=== PATIENT | male | born 1985 | race Caucasian/White ===

== ENCOUNTER 2021-09-22 13:40 | Emergency (ER) | payer OTHER, SELFPAY ==
--- NOTE | ~2021-09-22 | CT_ITS ---
EXAMINATION: CT abdomen pelvis w con CLINICAL INFORMATION: Reason for Exam mid abdomen pain COMPARISON: Prior CT 2006 TECHNIQUE: Multidetector volumetric imaging was performed from the superior aspect of the liver through the pubic symphysis 85 mL Omnipaque 350 injected Sagittal and coronal reformatted images were obtained on the technologist's workstation. This CT examination was performed using dose optimization techniques as appropriate, variously including the following: *Automated exposure control *Adjustment of mA and/or kV according to patient size (this includes techniques or standardized protocols for targeted exams where dose is matched to indication/reason for exam; i.e. extremities or head) *Use of iterative reconstruction technique DLP: 733 mGy-cm FINDINGS: LOWER THORAX: Included lung bases are clear. HEPATOBILIARY: No focal hepatic lesions. No biliary ductal dilatation. GALLBLADDER: Gallbladder unremarkable. SPLEEN: Spleen is normal in size. PANCREAS: No focal mass or ductal dilatation. STOMACH AND GASTROINTESTINAL TRACT: Stomach is not fully distended, there is circumferential wall thickening of the gastric antrum which could be peristalsis physiologic, cannot rule out underlying process such as gastritis. There is no bowel distention or thickening. No CT evidence of appendicitis. ADRENALS: No adrenal nodules. KIDNEYS/URETERS: No hydronephrosis, stones or solid mass lesions. URINARY BLADDER: Partially decompressed. PELVIC VISCERA: Unremarkable PERITONEUM: No free air or fluid. LYMPH NODES: No lymphadenopathy. VASCULAR:Abdominal aorta normal in size, no aneurysm found. BONES, ABDOMINAL WALL AND SOFT TISSUES: Age-appropriate changes of the spine and skeletal system, no destructive osteolytic or osteosclerotic bone lesion found CT/CT abdomen pelvis w con IMPRESSION: Circumferential wall thickening of the gastric antrum, could be peristalsis, cannot rule out gastritis. Please correlate with patient's symptoms and physical presentation, if clinically indicated, This can be evaluated by endoscopy or follow-up barium upper GI study. No CT evidence of appendicitis, normal appendix identified.
[2021-09-22 13:44] VITALS: BP 145/82; PULSE 60; RESP 15; TEMP 36.2; O2SAT 98; BMI 31.3
--- NOTE | 2021-09-22 14:09 | ED.ABDPAIN ---
HPI - Abdominal Pain General Chief Complaint: Abdominal Pain Stated Complaint: Abd pain Time Seen by Provider: 09/22/21 14:04 Source: patient and family Mode of arrival: ambulatory Limitations: no limitations History of Present Illness HPI narrative: 35 yo male healthy here with complaints of mid abdomen pain x 2 days, no nausea/vomiting/diarrhea. +constipation but able to go yesterday. No urinary symptoms, fevers, testicular pain. H/o adrenal cyst removal Related Data Previous Rx's Medication Instructions Recorded omeprazole 40 mg capsule,delayed 40 mg PO DAILY #30 cap 09/22/21 release sucralfate 1 gram tablet (Carafate) 1 g PO AC #90 tab 09/22/21 sucralfate 1 gram tablet (Carafate) 1 g PO TID #90 tab 09/22/21 Allergies Allergy/AdvReac Type Severity Reaction Status Date / Time amorolfine [Amorolfine] Allergy Mild RASH Unverified 03/02/20 15:27 azithromycin [From Zithromax] Allergy Mild RASH Unverified 03/02/20 15:27 amoxicillin [AMOXICILLIN] Allergy Unknown RASH Unverified 03/02/20 15:27 Review of Systems Review of Systems Yes all other systems are reviewed and are negative Constitutional: Reports no additional constitutional complaints, Denies body ache(s), Denies chills, Denies fever(s), Denies headache(s) and Denies weakness Eyes: Reports no additional eye complaints and Denies change in vision Reports system reviewed and no additional complaints, except as documented, Denies dizziness, Denies headache(s), Denies nasal congestion, Denies nasal discharge and Denies neck pain Cardiovascular: Reports no additional cardiovascular complaints, Denies chest pain, Denies leg edema and Denies dyspnea Respiratory: Reports no additional respiratory complaints, Denies cough and Denies dyspnea Gastrointestinal: Reports no additional gastrointestinal complaints, Reports abdominal pain, Reports constipation, Denies diarrhea, Denies nausea and Denies vomiting Genitourinary: Denies urinary incontinence Musculoskeletal: Reports no additional musculoskeletal complaints, Denies back pain, Denies arthralgias, Denies joint swelling, Denies neck pain, Denies numbness and Denies tingling Skin/Breast: Reports system reviewed and no additional complaints, except as docu and Denies rash Reports system reviewed and no additional complaints, except as documented, Denies dizziness, Denies headache(s), Denies numbness, Denies tingling and Denies weakness PMFSH Past Medical History Attestation statement: The following information was validated with the patient. Source: old records reviewed and nursing notes reviewed Social History Social History Patient Tobacco Use Status: Never used Tobacco Use of substances other than those prescribed or required for medical reasons: No Advance Directives: No Advance Directives Information Provided: No Physical Exam ED Vital Signs: Vital Signs - 24 hr 09/22/21 13:44 09/22/21 14:29 09/22/21 16:13 Temperature 97.2 F 98.0 F Pulse Rate 60 51 48 L Respiratory Rate 15 18 18 Blood Pressure 145/82 H 132/82 147/89 H Pulse Oximetry 98 96 98 BMI result Body Mass Index 31.3 Const General: cooperative, healthy appearing, comfortable and no acute distress Orientation/consciousness: patient oriented x3 Limitations: no limitations HENMT Head: Yes normal to inspection Ears: hearing grossly normal bilaterally General nose exam: Normal external nose present Face and sinus: Yes normal facial exam Mouth: Normal oral and palatal mucosa present Teeth and gingiva: dentition normal Throat: Yes posterior oropharynx normal, Yes tonsils normal and Yes uvula midline Eyes General: appearance normal, both eyes and all related structures Pupils: Equal, round and reactive pupils present Neck Neck: Yes normal visual inspection, Yes full ROM, Yes no lymphadenopathy and Yes no meningeal signs Chest Chest palpation & inspection: normal inspection of the chest Resp Effort & Inspection: normal respiratory effort Auscultation: clear to auscultation bilaterally Cardio Rate: regular rate Rhythm: regular rhythm Peripheral pulses: Peripheral pulses 2+ throughout GI Inspection: Yes normal to inspection Palpation (GI): Soft to palpation and Tenderness to palpation present (GI) (mid abdomen-no rebound or guaurding ) General: Yes no CVA tenderness Back/Spine/Pelvis Back: no CVA tenderness Thoracic/Lumbar Spine: thoracic and lumbar spine normal to inspection Skin General skin exam: no rashes or lesions noted Neuro General: patient oriented x3, moves all extremities and no meningeal signs Cranial nerves: Yes CN's II-XII intact bilaterally and Yes Equal, round and reactive pupils present Extrem General: Yes normal to inspection, Yes no pedal edema and Yes no calf tenderness Course Course Course Narrative: 35 yo male here with mid abdominal pain x 2 days. Will need labs, UA, CT 1615-labs show unremarkable. CT is consistent with gastritis. Patient tells me he has longstanding history of IBS, chronic abdominal pain seen by GI doctor out in [facility]. He has had several endoscopies and colonoscopies. 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 He does have a primary care doctor and received a referral lasting from his primary care doctor to see a sawmill production worker. I reviewed his CT scan findings with him. I recommend starting PPI, Carafate and following a gastirits diet. Reviewed worrisome signs and symptoms of when to return to the emergency department. Comfortable discharge home. MDM - Abdominal Pain Medical Records Attestation: I reviewed the patient's medical records. Lab Data Attestation: I reviewed the patient's lab results. Result diagrams: 09/22/21 14:33 09/22/21 14:33 Labs: Lab Results 09/22/21 09/22/21 09/22/21 Range/Units 14:33 14:33 16:15 WBC 8.8 (4.8-10.8) X10*3/uL RBC 4.57 L (4.60-5.80) X10*6/uL Hgb 14.2 (14.0-18.0) g/dl Hct 41.0 L (42.0-52.0) % MCV 89.7 (80.0-98.0) fL MCH 31.1 (27.0-33.0) pg MCHC 34.6 (31.0-36.0) g/dl RDW 11.9 (11.0-16.0) % Plt Count 220 (160-400) X10*3/uL MPV 9.2 L (9.4-12.4) fL Immature Gran % (Auto) 0.3 (0.0-0.4) % Neut % (Auto) 65.5 (45-73) % Lymph % (Auto) 24.4 (20-40) % [place] % (Auto) 7.9 (2-11) % Eos % (Auto) 1.4 (0-4) % Baso % (Auto) 0.5 (0-2) % Lymph # (Auto) 2.2 (1.2-4.9) X10*3/uL [place] # (Auto) 0.7 (0.1-1.2) X10*3/uL Eos # (Auto) 0.1 (0.0-0.4) X10*3/uL Baso # (Auto) 0.0 (0.0-0.2) X10*3/uL Abs Immat Gran (auto) 0.03 (0.00-0.03) X10*3/uL Absolute Neuts (auto) 5.8 (2.0-8.3) x10*3/uL Absolute Nucleated RBC 0.000 (0.0-0.012) X10*3/uL Nucleated RBC % (auto) 0.0 (0.0-0.2) /100WBC Sodium 139 (135-145) mmol/L Potassium 4.4 (3.3-5.1) mmol/L Chloride 103 (96-108) mmol/L Carbon Dioxide 28 (22-29) mmol/L Anion Gap 12 (12-20) BUN 10 (9-16) mg/dL Creatinine 0.83 (0.5-1.4) mg/dL Estim Creat Clear Calc 161.3 Estimated GFR > 60 Random Glucose 82 (60-115) mg/dL Calcium 9.1 (8.4-10.2) mg/dL Magnesium 2.1 (1.6-2.6) mg/dL Total Bilirubin 0.8 (0.0-1.0) mg/dL Direct Bilirubin 0.3 (0.0-0.5) mg/dL AST 26 (5-37) U/L ALT 33 (0-40) U/L Alkaline Phosphatase 86 (39-117) U/L Total Protein 7.0 (6.5-8.0) g/dL Albumin 4.3 (3.5-5.0) g/dL Lipase 57 (8-78) U/L Urine Color YELLOW Urine Appearance CLEAR Urine pH 5.5 (5.0-8.0) Ur Specific [place] 1.025 (1.005-1.025) Urine Protein NEG (NEG-TRACE) MG/DL Urine Glucose (UA) NEG (NEG) MG/DL Urine Ketones NEG (NEG) MG/DL Urine Blood NEG (NEG) Urine Nitrite NEG (NEG) Ur Leukocyte Esterase NEG (NEG) Imaging Data CT scan - abdomen: Attestation: I personally reviewed and interpreted this imaging study as follows: Radiologist's impression: DLP: 733 mGy-cm FINDINGS: LOWER THORAX: Included lung bases are clear. HEPATOBILIARY: No focal hepatic lesions. No biliary ductal dilatation. GALLBLADDER: Gallbladder unremarkable. SPLEEN: Spleen is normal in size. PANCREAS: No focal mass or ductal dilatation. STOMACH AND GASTROINTESTINAL TRACT: Stomach is not fully distended, there is circumferential wall thickening of the gastric antrum which could be peristalsis physiologic, cannot rule out underlying process such as gastritis. There is no bowel distention or thickening. No CT evidence of appendicitis. ADRENALS: No adrenal nodules. KIDNEYS/URETERS: No hydronephrosis, stones or solid mass lesions. URINARY BLADDER: Partially decompressed. PELVIC VISCERA: Unremarkable PERITONEUM: No free air or fluid. LYMPH NODES: No lymphadenopathy. VASCULAR:Abdominal aorta normal in size, no aneurysm found. BONES, ABDOMINAL WALL AND SOFT TISSUES: Age-appropriate changes of the spine and skeletal system, no destructive osteolytic or osteosclerotic bone lesion found CT/CT abdomen pelvis w con IMPRESSION: Circumferential wall thickening of the gastric antrum, could be peristalsis, cannot rule out gastritis. Please correlate with patient's symptoms and physical presentation, if clinically indicated, This can be evaluated by endoscopy or follow-up barium upper GI study. ? No CT evidence of appendicitis, normal appendix identified. Discharge Plan Discharge Clinical Impression: Gastritis Patient Disposition: Home, Self-Care Instructions: Gastritis (DC), Diet for Stomach Ulcers and Gastritis (ED) Additional Instructions: Avoid spicy foods Limit caffeine or alcohol intake Get GI referral Prescriptions: New omeprazole 40 mg capsule,delayed release(DR/EC) 40 mg PO DAILY Qty: 30 0RF sucralfate [Carafate] 1 gram tablet 1 g PO AC Qty: 90 0RF sucralfate [Carafate] 1 gram tablet 1 g PO TID Qty: 90 0RF Referrals: Gina Alberts MD [Primary Care Provider] - 1 week (for persistent symptoms) Interventions: ED Discharge Assessment Last Done: 09/22/21 17:00 Discharge Date/Time: 09/22/21 17:00
[2021-09-22 14:29] VITALS: BP 132/82; PULSE 51; RESP 18; O2SAT 96
[2021-09-22 14:38] LABS: MANUAL DIFF FLAG NO
[2021-09-22 14:40] LABS: Basophils Percent Auto 0.5 % (0-2); Eosinophils Absolute Auto 0.1 X10*3/uL (0.0-0.4); Eosinophils Percent Auto 1.4 % (0-4); Hemoglobin 14.2 g/dl (14.0-18.0); Imm Gran Abs Auto 0.03 X10*3/uL (0.00-0.03); Imm Gran Pct Auto 0.3 % (0.0-0.4); Lymphocytes Absolute Auto 2.2 X10*3/uL (1.2-4.9); Lymphocytes Percent Auto 24.4 % (20-40); Mean Corpuscular HGB Conc 34.6 g/dl (31.0-36.0); Mean Corpuscular Hemoglobin 31.1 pg (27.0-33.0); Mean Corpuscular Volume 89.7 fL (80.0-98.0); Mean Platelet Volume 9.2 fL (9.4-12.4); Monocytes Absolute Auto 0.7 X10*3/uL (0.1-1.2); Monocytes Percent Auto 7.9 % (2-11); Neutrophils Absolute Auto 5.8 x10*3/uL (2.0-8.3); Neutrophils Percent Auto 65.5 % (45-73); Platelet Count 220 X10*3/uL (160-400); Red Blood Count 4.57 X10*6/uL (4.60-5.80); Red Cell Distribution Width 11.9 % (11.0-16.0); White Blood Count 8.8 X10*3/uL (4.8-10.8)
--- NOTE | 2021-09-22 14:55 | PC.NURSE ---
pt alert and oriented, skin pwd, respirations even and unlabored. pt reports mid abd pain that's intermittent for two days with some nausea and feels like he cant pass gas
[2021-09-22 14:57] LABS: Alanine Aminotransferase 33 U/L (0-40); Albumin Level 4.3 g/dL (3.5-5.0); Alkaline Phosphatase 86 U/L (39-117); Anion Gap 12 (12-20); Aspartate Amino Transferase 26 U/L (5-37); Bilirubin Direct 0.3 mg/dL (0.0-0.5); Bilirubin Total 0.8 mg/dL (0.0-1.0); Blood Urea Nitrogen 10 mg/dL (9-16); Calcium 9.1 mg/dL (8.4-10.2); Carbon Dioxide 28 mmol/L (22-29); Chloride 103 mmol/L (96-108); Creatinine Clr Calc Pharmacy 161.3; Estimated Glomerular Filt Rate > 60; Glucose Random 82 mg/dL (60-115); Lipase 57 U/L (8-78); Magnesium 2.1 mg/dL (1.6-2.6); Potassium 4.4 mmol/L (3.3-5.1); Sodium 139 mmol/L (135-145)
[2021-09-22] MEDS: iohexoL 350 MG/ML 100 ML INFUS..BTL IV (15:32)
[2021-09-22 16:13] VITALS: BP 147/89; PULSE 48; RESP 18; TEMP 36.7; O2SAT 98
[2021-09-22] MEDS: Lidocaine HCl Viscous 2 % 15 ML SOLUTION MUCOUS MEM (16:20)
[2021-09-22] MEDS: Famotidine/PF 20 MG/2 ML VIAL IVPUSH (16:20)
[2021-09-22] MEDS: Magnesium Hydrox/Alum Hydrox 30 ML ORAL.SUSP PO (16:21)
[2021-09-22 16:33] LABS: Appearance Urine CLEAR; Color Urine YELLOW; Glucose Urine UA NEG (NEG); Leukocyte Esterase Urine NEG (NEG); Nitrite Urine NEG (NEG); PH 5.5 (5.0-8.0); Specific Gravity - Urine 1.025 (1.005-1.025); Urine Blood NEG (NEG); Urine Ketones NEG (NEG); Urine Protein NEG (NEG-TRACE)
[2021-09-22] MEDS: ondansetron HCL 4 MG/2 ML VIAL IVPUSH (16:56)
== END 2021-09-22 17:00 | disposition home or self-care (01) ==
PROVIDERS: Nurse Practitioner Family; Emergency Provider Emergency Medicine; PCP Family Medicine
DX: K29.70 Gastritis, unspecified, without bleeding (principal); R10.9 Unspecified abdominal pain
CPT/HCPCS: 36415; 74177; 80048; 80076; 81003; 83690; 83735; 85025; 96374; 96375; 99284; J2405; Q9967

== ENCOUNTER 2023-03-03 09:58 | Emergency (ER) | payer OTHER, SELFPAY ==
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
--- NOTE | ~2023-03-03 | XR_ITS ---
EXAMINATION: XR SHOULDER, LEFT CLINICAL INFORMATION: Left shoulder pain. COMPARISON: None available. TECHNIQUE: AP, Grashey, and scapular Y views of the left shoulder. FINDINGS: No acute fracture or dislocation. No significant joint space narrowing or marginal osteophytes. No osseous erosion. No abnormal soft tissue calcification. Small accessory ossicle along the anterior aspect of the acromion. XR/XR shoulder LT min 2V IMPRESSION: No acute osseous abnormality.
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
[2023-03-03 10:03] VITALS: BP 170/113; PULSE 78; O2SAT 99
[2023-03-03 10:09] VITALS: BP 130/79; PULSE 58; RESP 18; TEMP 37.5; O2SAT 95; BMI 27.1
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
== END 2023-03-03 13:33 | disposition home or self-care (01) ==
PROVIDERS: Emergency Provider Emergency Medicine
DX: S13.4XXA Sprain of ligaments of cervical spine, initial encounter (principal); S40.012A Contusion of left shoulder, initial encounter; R51.9 Headache, unspecified; M54.2 Cervicalgia; M25.512 Pain in left shoulder; V43.52XA Car driver injured in collision with other type car in traffic accident, initial encounter; Y93.9 Activity, unspecified; Y92.9 Unspecified place or not applicable; Y99.9 Unspecified external cause status
CPT/HCPCS: 70450; 72125; 73030; 99282; 99284